=== PATIENT | female | born 1980 | race Caucasian/White ===

== ENCOUNTER 2018-01-21 07:06 | Day surgery (SDC) | payer BC ==
[~2018-01-21] VITALS: Ht 160 cm; Wt 72.6 kg
[2018-01-21] MEDS ORDERED: MOTRIN800 MG PO (08:52)
[2018-01-21] MEDS ORDERED: PERCOCET 5/31 TABLET PO (08:52)
[2018-01-21 13:45] VITALS: BP 132/70
[2018-01-21 13:58] VITALS: BP 112/56
[2018-01-21 14:55] VITALS: BP 104/62
== END 2018-01-21 15:30 | disposition home or self-care (01) ==
LOC: SDC 07:06
DX: N80.0 Endometriosis of uterus (principal); N83.01 Follicular cyst of right ovary; N83.11 Corpus luteum cyst of right ovary
CPT/HCPCS: 88307; J0131; J0690; J1100; J1885; J2250; J2405; J2710; J2795; J3475; J7643; Q0175; S0020

== ENCOUNTER 2018-02-07 15:54 | Emergency (ER) | payer BC ==
[~2018-02-07] VITALS: Ht 160 cm; Wt 73.4 kg
[~2018-02-07 15:54] MED LIST: MOTRIN800 MG PO; PERCOCET 5/31 TABLET PO
[2018-02-07 16:51] LABS: HEMATOCRIT 41.1 % (36.0-46.0); HEMOGLOBIN 13.9 G/DL (11.9-15.5); MCH 30.5 PG (29.0-34.0); MCHC 33.8 G/DL (30.0-36.0); MCV 90.1 FL (83-99); PLATELET COUNT 340 K/uL (156-360); RBC DIS.WIDTH-CV 12.9 % (11.8-14.6); RBC DIS.WIDTH-SD 42.9 % (39-53); RED BLOOD COUNT 4.56 M/uL (3.80-5.20); WHITE BLOOD COUNT 10.2 K/uL (4.1-10.2)
[2018-02-07 16:57] LABS: APPEARANCE SL.HAZY ((CLEAR)); BILIRUBIN NEGATIVE; BLOOD LARGE; COLOR YELLOW ((YELLOW)); GLUCOSE (STRIP) NEGATIVE; KETONES NEGATIVE; LEUKOCYTES LARGE; NITRITE NEGATIVE; PROTEIN (STRIP) 30; SPECIFIC GRAVITY 1.004 (1.000-1.030); UROBILINOGEN 0.2 MG/DL (0.2-1.0)
[2018-02-07 17:02] LABS: CHLORIDE 105 mEq/L (99-109); POTASSIUM 3.9 mEq/L (3.7-5.4); SODIUM 140 mEq/L (136-147)
[2018-02-07 17:03] LABS: GLUCOSE 143 mg/dL (70-99)
[2018-02-07 17:07] LABS: CREATININE 0.7 mg/dL (0.6-1.3); GFR ESTIMATE (CALCULATED) > 59 mL/min/
[2018-02-07 17:08] LABS: UREA NITROGEN (BUN) 12 mg/dL (9-23)
[2018-02-07 17:38] LABS: EPITHELIAL CELLS 2+ /HPF; MUCUS 1+ /LPF; WHITE BLOOD CELLS 20-30 /HPF (0-5)
[2018-02-07 17:39] LABS: BACTERIA 1+ /HPF; HYALINE CASTS 0-5 /LPF; UCUL ADDED? YES
[2018-02-07 18:49] VITALS: BP 105/54
== END 2018-02-07 18:53 | disposition home or self-care (01) ==
LOC: EME 15:54
PROVIDERS: Nurse Practitioner Family
DX: R10.9 Unspecified abdominal pain (principal); N93.9 Abnormal uterine and vaginal bleeding, unspecified; Z98.890 Other specified postprocedural states; Z90.710 Acquired absence of both cervix and uterus; Z90.721 Acquired absence of ovaries, unilateral; Z85.41 Personal history of malignant neoplasm of cervix uteri
CPT/HCPCS: 76856; 80048; 81003; 85027; 86850; 86900; 86901; 87086; 99281; 99284